=== PATIENT | male | born 1960 | race Caucasian/White ===

== ENCOUNTER → 2018-07-06 | Emergency (ER) | payer OTHER ==
[~2018-07-06] MED LIST: Ibuprofen 200 MG TAB ONE
--- NOTE | 2018-07-07 08:44 | RAD ---
PA CHEST AND LEFT RIBS 4 VIEWS: Date: 07/06/18 HISTORY: Fall with injury to left chest. FINDINGS: Lungs are clear on the PA chest exam. No evidence of left rib fracture identified. IMPRESSION: No evidence of left rib fracture. POS: [facility]
== END ==
LOC: BURERS 23:18
DX: S22.32XA Fracture of one rib, left side, initial encounter for closed fracture (principal); E10.9 Type 1 diabetes mellitus without complications; E03.9 Hypothyroidism, unspecified; I10 Essential (primary) hypertension; F17.210 Nicotine dependence, cigarettes, uncomplicated; Z79.899 Other long term (current) drug therapy; Z79.4 Long term (current) use of insulin; W19.XXXA Unspecified fall, initial encounter

== ENCOUNTER 2018-09-25 10:56 | Emergency (ER) | payer BC ==
[2018-09-25 11:25] LABS: Clarity Clear (Clear); Leukocyte Negative (Negative); Nitrite Negative (Negative); Protein, Urine (Dipstick) 100 mg/dL (Neg-Trace); Specific Gravity, Urine 1.015 (1.005-1.030)
[2018-09-25 11:26] LABS: Bilirubin Negative (Negative); Blood, Urine Negative (Negative); Glucose, Urine (Dipstick) 250 mg/dL (Negative); Urobilinogen 0.2 mg/dL (0.2-1.0)
[2018-09-25 11:28] LABS: Bacteria/HPF Rare-Few HPF (None Seen); RBC/HPF 0-3 HPF (0-3); Squamous Epithelial 0-3 HPF (0-3); WBC/HPF 0-3 HPF (0-3)
[2018-09-25 11:34] LABS: #Basophils 0.2 thou/uL (0.0-0.2); #Eosinphils 0.4 thou/uL (0.0-0.7); #Lymphocytes 1.8 thou/uL (1.20-3.40); #Monocytes 0.6 thou/uL (0.11-0.59); #Neutrophils 5.7 thou/uL (1.40-6.50); %Basophils 2.2 % (0.0-1.0); %Eosinophils 4.4 % (0.0-10.0); %Lymphocytes 21.1 % (21.0-51.0); %Neutrophils 65.4 % (42.0-75.0); Hemoglobin 13.1 g/dL (14.0-18.0); Mean Corpuscular HGB CONC 34.3 g/dL (32.0-36.0); Mean Corpuscular Hemoglobin 29.8 pg (27.0-31.0); Mean Corpuscular Volume 86.6 fL (78.0-98.0); Mean Platelet Volume 10.3 fL (7.4-10.4); Platelet Count 249 thou/uL (130-400); RBC Distribution Width 11.3 % (11.5-14.5); White Blood Cell (WBC) Count 8.7 thou/uL (4.8-10.8)
[2018-09-25 11:45] LABS: ALT (SGPT) 17 U/L (8-55); AST (SGOT) 14 U/L (5-34); Albumin 4.3 g/dL (3.5-5.0); Alkaline Phosphatase 129 U/L (40-150); Anion Gap 15 mmol/L (10-20); BUN (Urea Nitrogen) 91 mg/dL (8.4-25.7); Base Excess-Venous -4.6 mmol/L (-2.0 to 3.0); Bicarbonate (HCO3v) 20.5 mmol/L (22.0-28.0); Bilirubin, Total 0.3 mg/dL (0.2-1.2); CO2 Tension (PvCO2) 37.2 mmHg (40.0-50.0); Calc. Creatinine Clearance 0 mL/min (70-130); Calcium 9.2 mg/dL (7.8-10.44); Calcium, Ionized 1.11 mmol/L (See Comments:); Carbon Dioxide 20 mmol/L (22-29); Chloride 100 mmol/L (98-107); Chloride 99 mmol/L (98-107); Estimated GFR-MDRD 30; Globulin 3.4 g/dL (2.4-3.5); Glucose 357 mg/dL (70-105); Hemoglobin - Calc 13.3 g/dL (14.0-18.0); O2 Tension (PvO2) 45.6 mmHg (35.0-45.0); Potassium 5.7 mmol/L (3.5-5.1); Protein, Total 7.7 g/dL (6.0-8.3); Sodium 129 mmol/L (136-145); Sodium 131 mmol/L (138-145); T. Carbon Dioxide 21.6 mmol/L (22.0-28.0); pH (Venous) 7.348 (7.320-7.430); vO2 Saturation-calc 79.3 % (60.0-85.0)
[2018-09-25] MEDS ORDERED: Sodium Bicarb 50 MEQ/50 ML Abboject 8.4% SYRINGE ONE (11:56)
[2018-09-25] MEDS ORDERED: Insulin Regular 300 UNITS/3 ML VIAL ONE (11:56)
[2018-09-25] MEDS ORDERED: Dextrose 50% Abboject 50 ML SYRINGE ONE (11:56)
[2018-09-25 13:55] LABS: Anion Gap 13 mmol/L (10-20); BUN (Urea Nitrogen) 82 mg/dL (8.4-25.7); Calc. Creatinine Clearance 0 mL/min (70-130); Calcium 8.3 mg/dL (7.8-10.44); Carbon Dioxide 21 mmol/L (22-29); Chloride 107 mmol/L (98-107); Estimated GFR-MDRD 39; Glucose 157 mg/dL (70-105); Potassium 4.5 mmol/L (3.5-5.1); Sodium 136 mmol/L (136-145)
[2018-09-25 16:17] LABS: Anion Gap 12 mmol/L (10-20); BUN (Urea Nitrogen) 76 mg/dL (8.4-25.7); Calc. Creatinine Clearance 0 mL/min (70-130); Calcium 8.7 mg/dL (7.8-10.44); Carbon Dioxide 24 mmol/L (22-29); Chloride 107 mmol/L (98-107); Estimated GFR-MDRD 44; Glucose 89 mg/dL (70-105); Potassium 4.8 mmol/L (3.5-5.1); Sodium 138 mmol/L (136-145)
--- NOTE | 2018-09-25 18:54 | ULT ---
BILATERAL RENAL ULTRASOUND: 09/25/18 Ultrasonography of the urinary tract was performed. There is no evidence of renal mass, hydronephrosi s, or cortical thinning. The urinary bladder showed no internal defects. The thickness of the urina ry bladder wall is a little increased at 7 to 8 mm which may or may not be significant. The right kidney measures 11.6 x 5.3 x 5.1 cm. The left kidney measures 11.4 x 6.3 x 5.1 cm. IMPRESSION: 1. No acute urinary tract abnormality. No evidence of obstruction. 2. Mild thickening of the urinary bladder wall. This can be seen in cystitis but sometimes is j ust from underdistention. POS: HOME
== END 2018-09-25 16:37 | disposition home or self-care (01) ==
LOC: BURERS 10:56
DX: N17.9 Acute kidney failure, unspecified (principal); I12.9 Hypertensive chronic kidney disease with stage 1 through stage 4 chronic kidney disease, or unspecified chronic kidney disease; N28.9 Disorder of kidney and ureter, unspecified; E87.5 Hyperkalemia; E03.9 Hypothyroidism, unspecified; F17.210 Nicotine dependence, cigarettes, uncomplicated; Z79.899 Other long term (current) drug therapy; Z79.4 Long term (current) use of insulin
CPT/HCPCS: 36416; 76770; 80053; 81003; 81015; 82330; 82550; 82803; 85014; 85025; 93005; 96361; 96374; 96375; 36415-59; J1815

== ENCOUNTER 2019-06-15 18:21 | Emergency (ER) | payer BC ==
[2019-06-15] MEDS ORDERED: Aspirin Chewable 81 MG TAB ONE (18:36)
[2019-06-15] MEDS ORDERED: Nitroglycerin 2% Ointment 1 INCH/1 GM Packet ONE (18:36)
[2019-06-15] MEDS ORDERED: Nitroglycerin 50 MG/250 ML BOT 0 ML ONE (18:36)
[2019-06-15 19:00] LABS: #Basophils 0.2 thou/uL (0.0-0.2); #Eosinphils 0.4 thou/uL (0.0-0.7); #Lymphocytes 2.8 thou/uL (1.20-3.40); #Monocytes 0.7 thou/uL (0.11-0.59); #Neutrophils 7.1 thou/uL (1.40-6.50); %Basophils 1.7 % (0.0-1.0); %Eosinophils 3.7 % (0.0-10.0); %Monocytes 6.2 % (0.0-10.0); %Neutrophils 63.4 % (42.0-75.0); Mean Corpuscular HGB CONC 33.8 g/dL (32.0-36.0); Mean Corpuscular Hemoglobin 30.1 pg (27.0-31.0); Mean Corpuscular Volume 89.1 fL (78.0-98.0); Mean Platelet Volume 11.7 fL (7.4-10.4); Platelet Count 235 thou/uL (130-400); RBC Distribution Width 11.7 % (11.5-14.5); Red Blood Cell (RBC) Count 4.31 mill/uL (4.70-6.10); White Blood Cell (WBC) Count 11.2 thou/uL (4.8-10.8)
[2019-06-15 19:08] LABS: ALT (SGPT) 18 U/L (8-55); AST (SGOT) 16 U/L (5-34); Albumin 3.8 g/dL (3.5-5.0); Alkaline Phosphatase 103 U/L (40-110); Anion Gap 13 mmol/L (10-20); BUN (Urea Nitrogen) 34 mg/dL (8.4-25.7); Bilirubin, Total 0.2 mg/dL (0.2-1.2); CK (CPK) 495 U/L (30-200); Calc. Creatinine Clearance 0 mL/min (70-130); Calcium 8.8 mg/dL (7.8-10.44); Carbon Dioxide 24 mmol/L (22-29); Chloride 108 mmol/L (98-107); Estimated GFR-MDRD 41; Glucose 220 mg/dL (70-105); Lipase 57 U/L (8-78); Potassium 4.5 mmol/L (3.5-5.1); Protein, Total 6.8 g/dL (6.0-8.3); Sodium 140 mmol/L (136-145)
--- NOTE | 2019-06-15 19:17 | RAD ---
PORTABLE CHEST: Date: 06-15-2019 An AP portable film at 1848 is compared to the 07-06-18 study. FINDINGS: The heart is normal in size and the lungs are clear. No infiltrate or effusion was seen. There is no vascular congestion or edema. Areas of slight increase in opacity on each side of the aorta are felt to be prominent costochondral junctions, particularly looking at the prior study. IMPRESSION: No acute findings. POS: HOME
== END 2019-06-15 19:59 | disposition home or self-care (01) ==
LOC: BURERS 18:21
DX: R07.9 Chest pain, unspecified (principal); E11.9 Type 2 diabetes mellitus without complications; E03.9 Hypothyroidism, unspecified; I10 Essential (primary) hypertension; F17.210 Nicotine dependence, cigarettes, uncomplicated; Z79.4 Long term (current) use of insulin; Z79.899 Other long term (current) drug therapy
CPT/HCPCS: 71045; 80053; 82550; 83690; 83880; 84484; 85025; 93005